=== PATIENT | female | born 1950 | race Caucasian/White ===

== ENCOUNTER 2016-04-28 16:59 | Emergency (ER) ==
[2016-04-28 17:15] VITALS: BP 118/74; TEMP 98.7; BMI 23.8
[2016-04-28 17:42] LABS: BASOPHILS # (AUTO) 0.1 K/uL (0-0.2); BASOPHILS % (AUTO) 1.2 % (0.0-3.0); EOSINOPHILS # (AUTO) 0.2 K/ul (0.0-0.7); HEMATOCRIT 34.3 % (37.0-47.0); HEMOGLOBIN 11.7 g/dl (12.0-16.0); IMMATURE GRANULOCYTE % (AUTO) 0.2 % (0.0-5.0); LYMPHOCYTES # (AUTO) 2.5 K/uL (0.60-3.4); LYMPHOCYTES % (AUTO) 30.1 (10.0-50.0); MEAN CORPUSCULAR HEMOGLOBIN 31.9 pg (27.0-31.0); MEAN CORPUSCULAR HGB CONC 34.1 (31.8-35.4); MEAN CORPUSCULAR VOLUME 93.5 fl (81.0-99.0); MONOCYTES # (AUTO) 0.6 K/uL (0.4-2.0); MONOCYTES % (AUTO) 7.1 (0-10); NEUTROPHILS # (AUTO) 4.8 K/ul (2.0-6.9); NEUTROPHILS % (AUTO) 59.4; PLATELET COUNT 272 10^3/uL (140-440); RED BLOOD COUNT 3.67 10^6/ul (4.20-5.40); WHITE BLOOD COUNT 8.15 K/ul (4.6-10.2)
[2016-04-28 18:08] LABS: FLU INTERNAL QC INTERNAL QC VALID; RAPID FLU A NEGATIVE (NEGATIVE); RAPID FLU B NEGATIVE (NEGATIVE)
[2016-04-28 18:26] LABS: ALANINE AMINOTRANSFERASE 14 U/L (12-78); ALBUMIN 3.9 g/dL (3.4-5.0); ALKALINE PHOSPHATASE 73 U/L (53-141); ANION GAP 13.4; ASPARTATE AMINO TRANSFERASE 13 U/L (15-37); BILIRUBIN,TOTAL 0.32 mg/dL (0.00-1.20); BLOOD UREA NITROGEN 13 mg/dL (7-18); CALCIUM 9.7 mg/dL (8.2-10.2); CARBON DIOXIDE 30 mmol/L (23-31); CHLORIDE 105 mmol/L (98-107); CREATINE KINASE 60 U/L; CREATININE 0.73 mg/dL (0.60-1.30); GLUCOSE 83 mg/dL (82-115); POTASSIUM 3.4 mmol/L (3.5-5.10); SODIUM 145 mmol/L (136-145); TOTAL PROTEIN 6.5 g/dL (5.8-8.1)
--- NOTE | 2016-04-28 18:31 | ED.PDOC ---
General ED Provider: Dr. 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 Onset: Gradual Duration: 1 DAY Symptoms Are: Still present Timing: Constant Initial Severity: Mild Current Severity: Mild Character: Reports: Lightheaded Aggravating: Reports: None Alleviating: Reports: None Associated Signs and Symptoms: Denies: Nausea, Vomiting, Diaphoresis, Tinnitus, Chest pain, Short of air, Palpitations, Unsteady gait, GI blood loss, Visual changes, Decreased oral intake, Change in medication, Change in diet, OTC meds, Loss of balance Related History: Similar episode Review of Systems - Review Of Systems Constitutional: Reports: Weakness Eyes: Reports: No symptoms Ears, Nose, Mouth, Throat: Reports: No symptoms Respiratory: Reports: No symptoms Cardiac: Reports: No symptoms GI: Reports: No symptoms : Reports: No symptoms Musculoskeletal: Reports: No symptoms Skin: Reports: No symptoms Neurological: Reports: No symptoms Endocrine: Reports: No symptoms Hematologic/Lymphatic: Reports: No symptoms All Other Systems: Reviewed and Negative Past Medical History - Past Medical History Previously Healthy: Yes Endocrine: Reports: None Cardiovascular: Reports: None Respiratory: Reports: None Hematological: Reports: None Gastrointestinal: Reports: None Genitourinary: Reports: None Neuro/Psych: Reports: None Musculoskeletal: Reports: Other (BACK PAIN , FIBROMYALGIA) Cancer: Reports: None Last Menstrual Period: menopause - Surgical History General Surgical History: Reports: Unknown - Family History Family History: Reports: Unknown - Social History Smoking Status: Current every day smoker, Heavy tobacco smoker Hx Substance Use: No Alcohol Screening: None Physical Exam - Physical Exam Appearance: Well-appearing, No pain distress, Well-nourished Eyes: JOE, EOMI, Conjunctiva clear ENT: Ears normal, Nose normal, Oropharynx normal Respiratory: Airway patent, Breath sounds clear, Breath sounds equal, Respirations nonlabored Cardiovascular: RRR, Pulses normal, No rub, No murmur GI/: Soft, Nontender, No masses, Bowel sounds normal, No Organomegaly Musculoskeletal: Normal strength, ROM intact, No edema, No calf tenderness Skin: Warm, Dry, Normal color Neurological: Sensation intact, Motor intact, Reflexes intact, Cranial nerves intact, Alert, Oriented Psychiatric: Affect appropriate, Mood appropriate Critical Care Note - Critical Care Note Total Time (mins): 0 Course - Course Hematology/Chemistry: 04/28/16 17:15 04/28/16 17:15 Orders, Labs, Meds: Lab Review 04/28/16 04/28/16 17:15 17:43 WBC 8.15 RBC 3.67 L Hgb 11.7 L Hct 34.3 L MCV 93.5 MCH 31.9 H MCHC 34.1 RDW Coeff of Panda 12.2 Plt Count 272 Immature Gran % (Auto) 0.2 Neut % (Auto) 59.4 Lymph % (Auto) 30.1 [place] % (Auto) 7.1 Eos % (Auto) 2.0 Baso % (Auto) 1.2 Immature Gran # (Auto) 0.0 Neut # 4.8 Lymph # 2.5 [place] # 0.6 Eos # 0.2 Baso # 0.1 Sodium 145 Potassium 3.4 L Chloride 105 Carbon Dioxide 30 Anion Gap 13.4 BUN 13 Creatinine 0.73 Estimated GFR (MDRD) 81.00 BUN/Creatinine Ratio 17.80 Glucose 83 Calcium 9.7 Total Bilirubin 0.32 AST 13 L ALT 14 Alkaline Phosphatase 73 Total Creatine Kinase 60 Troponin I < 0.0100 Total Protein 6.5 Albumin 3.9 Globulin 2.6 Albumin/Globulin Ratio 1.50 TSH 1.877 Free T4 0.80 Influenza A (Rapid) Negative Influenza B (Rapid) Negative Orders Category Date Time Status EKG-(ED ONLY) Stat CARDIO 04/28/16 17:01 Completed BLOOD CULTURE Stat LAB 04/28/16 17:15 Received CBC W/ AUTO DIFF Stat LAB 04/28/16 17:15 Completed COMPREHENSIVE METABOLIC PANEL Stat LAB 04/28/16 17:15 Completed CREATINE KINASE Stat LAB 04/28/16 17:15 Completed FREE T4 (FREE THYROXINE) Stat LAB 04/28/16 17:15 Completed RAPID FLU A/B Stat LAB 04/28/16 17:43 Completed THYROID STIMULATING HORMONE Stat LAB 04/28/16 17:15 Completed TROPONIN I Stat LAB 04/28/16 17:15 Completed UA [URINALYSIS C & S IF INDICATED] Stat LAB 04/28/16 17:01 Uncollected CHEST, 1V AP ONLY Stat RADS 04/28/16 17:01 Taken Vital Signs: Temp Pulse Resp BP Pulse Ox 04/28/16 16:59 98.7 F 77 20 118/74 95 Departure - Departure Time of Disposition: 18:32 Disposition: HOME SELF-CARE Discharge Problem: Weakness Instructions: Weakness (ED) Condition: Good Pt referred to PMD for follow-up: No Additional Instructions: Please call your Family Physician as soon as possible to schedule a follow-up appointment. Allergies/Adverse Reactions: Allergies aspirin Adverse Reaction (Verified 04/28/16 17:12) Home Medications: Ambulatory Orders Atorvastatin Calcium 20 mg PO DAILY 04/28/16 Bupropion HCl [Bupropion HCl ER] 200 mg PO BID 04/28/16 Diazepam 10 mg PO TID PRN 04/28/16 Hydrocodone Bit/Acetaminophen [[place] 10-325] 1 each PO Q6HR 04/28/16 Lamotrigine [Lamotrigine ER] 200 mg PO DAILY 04/28/16 Ranitidine HCl 300 mg PO DAILY 04/28/16 Venlafaxine HCl [Effexor Xr] 75 mg PO DIRECTED 04/28/16
--- NOTE | 2016-04-29 05:43 | DI ---
EXAM: AP single view of the chest. HISTORY: Cough. FINDINGS: The bony structures are unremarkable. The cardiac silhouette and pulmonary vasculature a re within normal limits. The costophrenic angles are clear. There is left basilar atelectasis and/ or pneumonia. Impression: Left basilar atelectasis and/or pneumonia.
== END 2016-04-28 18:56 | disposition home or self-care (01) ==
LOC: ED 16:59
DX: R53.1 Weakness (principal); R42 Dizziness and giddiness; Z79.899 Other long term (current) drug therapy; F17.210 Nicotine dependence, cigarettes, uncomplicated
CPT/HCPCS: 36415; 80053; 82550; 84439; 84443; 84484; 85025; 87040; 87804; 93005; 93010; 99283

== ENCOUNTER 2016-12-01 06:20 | Day surgery (SDC) | payer OTHER ==
[2016-12-01] MEDS: AK-DILATE 10% OPTH SOL OP PRN ×3 (07:00→07:10)
[2016-12-01] MEDS: VOLTAREN 0.1% OPTH SOL OP PRN ×3 (07:00→07:30)
[2016-12-01] MEDS: CYCLOGYL 2% OPTH OP PRN ×3 (07:00→07:10)
[2016-12-01] MEDS: TETRACAINE 0.5% UNIT-DOSE OP PRN ×3 (07:00→07:30)
[2016-12-01] MEDS ORDERED: ALBUTEROL 0.083% NEB NEB STA (07:13)
[2016-12-01 07:36] VITALS: TEMP 97
[2016-12-01] MEDS ORDERED: LIDOCAINE 1% 20 ML MDV ID ONE ×2 (07:38→08:21)
[2016-12-01] MEDS ORDERED: TIMOPTIC 0.5% OPTH OP ONE (07:43)
[2016-12-01] MEDS ORDERED: OCUFLOX 0.3% OPTH SOL OP ONE (07:43)
[2016-12-01] MEDS ORDERED: VERSED ONE (08:15)
[2016-12-01] MEDS ORDERED: ROMAZICON IVP ONE (08:15)
[2016-12-01] MEDS ORDERED: BETADINE OPTH PREP OP ONE (08:20)
[2016-12-01] MEDS ORDERED: PRED FORTE 1% OPTH SOL OP ONE (08:20)
[2016-12-01] MEDS ORDERED: DIAMOX PO ONE (09:00)
[2016-12-01] MEDS ORDERED: DIAMOX ONE (09:00)
[2016-12-01 09:34] VITALS: BP 127/62
--- NOTE | 2016-12-02 13:53 | OP ---
PREOPERATIVE DIAGNOSIS: CATARACT OF THE LEFT EYE. POSTOPERATIVE DIAGNOSIS: CATARACT OF THE LEFT EYE. OPERATION PHACOEMULSIFICATION ASPIRATION OF CATARACT LEFT EYE. PLACEMENT OF POSTERIOR CHAMBER LENS. PHACO TIME 25.4 SECONDS AT 8.0% POWER. LENS MODEL TECNIS [id number]. DIOPTER +21.5D. TECHNIQUE: CLEAR CORNEA. ANESTHESIA: TOPICAL ANESTHESIA W/ANESTHESIA MONITORING. OPERATIVE REPORT: Topical anesthesia consisting of Tetracaine was applied to the cornea and Xylocaine Methyl Paraben free of MFP was injected intracamerally into the anterior chamber. The patient was then brought into the operating room , prepped and draped in the usual ophthalmic manner. A lid speculum was placed and the operating microscope was used. A paracentesis was made at the 3 o' clock position. A clear corneal incision was made just out to the limbus. The anterior chamber was entered just inside the clear cornea. Viscoelastic was injected into the anterior chamber. A capsulotomy was performed with a bent # 27 gauge needle. Phacoemulsification was then performed in the posterior chamber. After completion of the phacoemulsification, residual cortical material was aspirated with the irrigation-aspiration system. The posterior capsule was polished. Viscoelastic was injected into the anterior and posterior chambers to inflate the capsular bag. Lens were placed via an Unfolder system and stabilized in the bag. Viscoelastic was removed from the anterior chamber. The wound was checked for any leakage. The four sponges were removed from the fornix. Topical antibiotic steroid and nonsteroidal drops were also applied to the cornea. A Melara shield was applied. The patient left the operating room in good condition without any complications. INTRAOPERATIVE MEDICATIONS: Xylocaine Methyl Paraben Free MPF MTDD
== END 2016-12-01 09:48 | disposition home or self-care (01) ==
LOC: SURG 06:20
PROVIDERS: ATTEND Ophthalmology
DX: H26.9 Unspecified cataract (principal)
CPT/HCPCS: 94640

== ENCOUNTER 2016-12-19 10:00 | Outpatient (RCR) | END 2016-12-20 | LOC: NEWBEG 10:00 | PROVIDERS: ATTEND Psychiatry & Neurology Psychiatry | DX: F60.9 Personality disorder, unspecified (principal); F41.9 Anxiety disorder, unspecified; F33.2 Major depressive disorder, recurrent severe without psychotic features; F01.50 Vascular dementia, unspecified severity, without behavioral disturbance, psychotic disturbance, mood disturbance, and anxiety | CPT/HCPCS: 90792; 90853; 99213 ==

== ENCOUNTER 2016-12-26 11:38 | Outpatient (CLI) ==
--- NOTE | 2016-12-29 08:45 | MAMMO ---
EXAM: Digital screening mammogram with tomosynthesis HISTORY: Screening COMPARISON: 09/05/2015 FINDINGS: Digital MLO and CC views of the right and left breast were performed. Tomosynthesis was p erformed. Computer aided detection was utilized. There are scattered fibroglandular densities. Sta ble benign lymph node in the left breast. There is no evidence for mass, asymmetry, distortion, or s uspicious calcifications in either breast. IMPRESSION: 1. No evidence of malignancy in the right or left breast. 2. Annual screening mammogram is recommended in one year. BIRADS category 2, benign,
== END 2016-12-26 11:39 | disposition home or self-care (01) ==
LOC: RAD 11:38
PROVIDERS: ATTEND Physician Assistant Medical
DX: Z12.31 Encounter for screening mammogram for malignant neoplasm of breast (principal)
CPT/HCPCS: 77067

== ENCOUNTER → 2016-12-30 | Outpatient (POV) | payer OTHER | LOC: OUTPT 00:01 | PROVIDERS: ATTEND Otolaryngology | DX: R42 Dizziness and giddiness (principal) | CPT/HCPCS: 92557; 92567 ==

== ENCOUNTER 2017-02-09 10:00 | Outpatient (RCR) | END 2017-02-19 | LOC: NEWBEG 10:00 | PROVIDERS: ATTEND Psychiatry & Neurology Psychiatry | DX: F01.50 Vascular dementia, unspecified severity, without behavioral disturbance, psychotic disturbance, mood disturbance, and anxiety (principal); F33.2 Major depressive disorder, recurrent severe without psychotic features; F41.9 Anxiety disorder, unspecified; F60.9 Personality disorder, unspecified | CPT/HCPCS: 90832; 90853; 99213 ==

== ENCOUNTER 2017-02-20 08:27 | Outpatient (RCR) | END 2017-03-22 | LOC: NEWBEG 08:27 | PROVIDERS: ATTEND Psychiatry & Neurology Psychiatry | DX: F33.2 Major depressive disorder, recurrent severe without psychotic features (principal); F41.9 Anxiety disorder, unspecified; F01.50 Vascular dementia, unspecified severity, without behavioral disturbance, psychotic disturbance, mood disturbance, and anxiety; F60.9 Personality disorder, unspecified ==

== ENCOUNTER 2017-07-23 13:52 | Outpatient (CLI) | payer OTHER ==
--- NOTE | 2017-07-23 16:03 | DI ---
Exam: Three x-rays of the right ribs. Comparison: 04/28/2016. Reason for exam: Pleurodynia FINDINGS: The right hemithorax is clear without pneumothorax, pleural effusion, or focal consolidati on. The right clavicle is intact. There is no evidence of displaced right-sided rib fracture seen o n the radiographic images. Moderate degenerative disease is seen throughout the thoracic spine. Impression: No displaced right-sided rib fractures are seen.
== END 2017-07-23 13:53 | disposition home or self-care (01) ==
LOC: CAR 13:52 → RAD 13:53
PROVIDERS: ATTEND Family Medicine
DX: R07.81 Pleurodynia (principal); Z51.81 Encounter for therapeutic drug level monitoring; Z79.899 Other long term (current) drug therapy
CPT/HCPCS: 93005; 93010

== ENCOUNTER 2017-08-31 06:34 | Day surgery (SDC) ==
[2017-08-31] MEDS: TETRACAINE 0.5% UNIT-DOSE OP PRN ×4 (07:15→08:09)
[2017-08-31] MEDS: CYCLOGYL 2% OPTH OP PRN ×3 (07:15→07:25)
[2017-08-31] MEDS: OCUFEN 0.03% OPTH SOL OP PRN ×3 (07:15→08:10)
[2017-08-31] MEDS: AK-DILATE 10% OPTH SOL OP PRN ×3 (07:15→07:25)
[2017-08-31 07:36] VITALS: TEMP 98.6
[2017-08-31] MEDS ORDERED: VERSED ONE (07:40)
[2017-08-31] MEDS ORDERED: SUBLIMAZE ONE (07:40)
[2017-08-31] MEDS ORDERED: DIAMOX PO STA ×6 (07:41→15:12)
[2017-08-31] MEDS ORDERED: BETADINE OPTH PREP OP ONE (07:41)
[2017-08-31] MEDS ORDERED: BSS WITH EPINEPHRINE OP ONE (07:50)
[2017-08-31] MEDS ORDERED: ADRENALIN 1:1000 SDV IR STA (07:50)
[2017-08-31] MEDS ORDERED: PRED FORTE 1% OPTH SOL OP PRN (08:00)
[2017-08-31] MEDS ORDERED: OCUFLOX 0.3% OPTH SOL OP PRN (08:00)
[2017-08-31] MEDS ORDERED: DIAMOX PO ONE (09:00)
[2017-08-31] MEDS ORDERED: LIDOCAINE HCL 1% SDV INJ PRN (13:25)
[2017-08-31] MEDS ORDERED: LIDOCAINE 1% 20 ML MDV ID STA (14:53)
--- NOTE | 2017-09-01 18:13 | OP ---
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 POSTOPERATIVE DIAGNOSIS: SAME. OPERATION PHACOEMULSIFICATION ASPIRATION OF CATARACT RIGHT EYE. PLACEMENT OF POSTERIOR CHAMBER LENS. PHACO TIME 38.5 SECONDS AT 2% POWER. LENS MODEL TECGONZALEZ [id number]. DIOPTER +21.5D. TECHNIQUE: CLEAR CORNEA. ANESTHESIA: TOPICAL ANESTHESIA W/ANESTHESIA MONITORING. OPERATIVE REPORT: Topical anesthesia consisting of Tetracaine was applied to the cornea and Xylocaine Methyl Paraben free of MFP was injected intracamerally into the anterior chamber. The patient was then brought into the operating room , prepped and draped in the usual ophthalmic manner. A lid speculum was placed and the operating microscope was used. A paracentesis was made at the 3 o' clock position. A clear corneal incision was made just out to the limbus. The anterior chamber was entered just inside the clear cornea. Viscoelastic was injected into the anterior chamber. A capsulotomy was performed with a bent # 27 gauge needle. Phacoemulsification was then performed in the posterior chamber. After completion of the phacoemulsification, residual cortical material was aspirated with the irrigation-aspiration system. The posterior capsule was polished. Viscoelastic was injected into the anterior and posterior chambers to inflate the capsular bag. Lens were placed via an Unfolder system and stabilized in the bag. Viscoelastic was removed from the anterior chamber. The wound was checked for any leakage. The four sponges were removed from the fornix. Topical antibiotic steroid and nonsteroidal drops were also applied to the cornea. A Melraa shield was applied. The patient left the operating room in good condition without any complications. INTRAOPERATIVE MEDICATIONS: Xylocaine Methyl Paraben Free MPF MTDD
[2017-09-02 13:00] VITALS: BP 116/67
== END 2017-08-31 09:00 | disposition home or self-care (01) ==
LOC: SURG 06:34
PROVIDERS: ATTEND Ophthalmology
DX: H25.11 Age-related nuclear cataract, right eye (principal); H52.31 Anisometropia

== ENCOUNTER 2017-10-07 12:14 | Outpatient (CLI) ==
--- NOTE | 2017-10-07 13:07 | DI ---
EXAM: Three views of the right shoulder. History: Right shoulder pain. Findings: No acute fracture or dislocation. Mild narrowing of the right AC joint with subchondral cy sts and small osteophytes. Glenohumeral joint is intact. No abnormal calcifications or radiopaque f oreign bodies. Impression: 1. No acute osseous abnormality. 2. 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
== END 2017-10-07 12:15 | disposition home or self-care (01) ==
LOC: CAR 12:14 → RAD 12:15
PROVIDERS: ATTEND Family Medicine
DX: M25.511 Pain in right shoulder (principal); G89.29 Other chronic pain; R07.81 Pleurodynia; E87.6 Hypokalemia; D64.9 Anemia, unspecified
CPT/HCPCS: 36415; 80053; 85025; 87086

== ENCOUNTER 2017-10-21 15:20 | Outpatient (CLI) ==
--- NOTE | 2017-10-21 16:38 | DI ---
Exam: Four views cervical spine. Comparison: None available. Reason for exam: Cervicalgia. FINDINGS: There is moderate degenerative disease seen throughout the cervical spine with interverteb ral body disc space height loss and osteophyte formation. No obvious fractures seen. There is strai ghtening of the cervical lordotic curve. The prevertebral soft tissues are within normal limits. Th e dens appears grossly intact although evaluation is limited on the open-mouth odontoid view. Impression: 1. No obvious fracture in the cervical spine. 2. Moderate to severe degenerative disease with intervertebral body disc space height loss and osteo phyte formation with facet hypertrophy. If clinical concern exists for radiculopathy or myelopathy, MRI may be performed for further characterization
--- NOTE | 2017-10-21 16:57 | DI ---
EXAM: Three views of the thoracic spine HISTORY: Pain in the right shoulder. COMPARISON: Thoracic spine x-ray 06/10/2012 FINDINGS: There is no acute compression fracture or subluxation. There are scattered anterior and la teral disc osteophytes. There is no lytic or blastic lesion. Soft tissues are unremarkable. Disc sp aces are minimally narrowed. IMPRESSION: No acute compression fracture or subluxation with mild worsening of the degenerative dis ease in comparison to 2013.
== END 2017-10-21 15:21 | disposition home or self-care (01) ==
LOC: RAD 15:20
PROVIDERS: ATTEND Family Medicine
DX: M25.511 Pain in right shoulder (principal); M54.2 Cervicalgia

== ENCOUNTER 2018-01-13 13:01 | Outpatient (CLI) | payer OTHER ==
--- NOTE | 2018-01-15 08:42 | MAMMO ---
EXAM: Bilateral digital screening mammogram (2-D and 3-D) History: Screening Comparison: Bilateral mammogram 12/26/2016 Findings: MLO and CC views of bilateral breasts demonstrate scattered fibroglandular breast parenchy ma. CAD was reviewed by the radiologist. Tomosynthesis was performed. Stable benign left breast no dule. There are no developing masses and no suspicious microcalcifications. No architectural distor tions Impression: Benign stable mammogram. Recommend followup routine screening mammography in 1 year. BIRADS 2
== END 2018-01-13 13:02 | disposition home or self-care (01) ==
LOC: RAD 13:01
PROVIDERS: ATTEND Family Medicine
DX: Z12.31 Encounter for screening mammogram for malignant neoplasm of breast (principal)
CPT/HCPCS: 77067

== ENCOUNTER 2018-08-17 13:08 | Outpatient (CLI) | END 2018-08-17 13:45 | disposition short-term general hospital (02) | LOC: AMBL 13:08 | PROVIDERS: ATTEND Emergency Medicine | DX: R42 Dizziness and giddiness (principal); R53.1 Weakness ==